=== PATIENT | female | born 1995 | race Caucasian/White ===

== ENCOUNTER 2016-08-04 06:35 | Emergency (ER) | payer SELFPAY ==
[2016-08-04 07:51] VITALS: BP 121/81
== END 2016-08-04 07:51 | disposition home or self-care (01) ==
LOC: ED 06:35
DX: L02.411 Cutaneous abscess of right axilla (principal)
CPT/HCPCS: J2001; J7040

== ENCOUNTER 2016-08-06 08:57 | Emergency (ER) | payer SELFPAY ==
[2016-08-06 10:19] VITALS: BP 117/88
== END 2016-08-06 10:19 | disposition home or self-care (01) ==
LOC: ED 08:57
DX: Z48.00 Encounter for change or removal of nonsurgical wound dressing (principal)

== ENCOUNTER 2017-05-23 08:12 | Emergency (ER) | payer OTHER ==
[~2017-05-23] VITALS: Ht 170.2 cm; Wt 100.7 kg
[2017-05-23 08:22] VITALS: Ht 170.2 cm; Wt 100.7 kg
[2017-05-23 10:01] LABS: CALCIUM 9.2 mg/dL (8.5-10.1); CARBON DIOXIDE 26.6 mmol/L (21-32); CHLORIDE SERUM 105 mmol/L (98-107); CREATININE SERUM 0.6 mg/dL (0.6-1.0); GFR1 > 60 mL/min; GLUCOSE SERUM 95 mg/dL (74-106); POTASSIUM SERUM 3.8 mmol/L (3.5-5.1); SODIUM SERUM 140 mmol/L (136-145)
[2017-05-23 10:07] LABS: ALBUMIN 3.5 g/dL (3.4-5.0); ALKALINE PHOSPHATASE 84 U/L (46-116); ALT/SGPT 13 U/L (14-59); AST/SGOT 12 U/L (15-37)
[2017-05-23 11:26] LABS: PLATELET COUNT 273 x10^3mcL (130-400)
[2017-05-23 11:27] LABS: BASOPHIL % 0.4 % (0-2)
[2017-05-23 11:55] VITALS: BP 128/77
== END 2017-05-23 11:55 | disposition home or self-care (01) ==
LOC: ED 08:12
PROVIDERS: Emergency Medicine
DX: R20.2 Paresthesia of skin (principal); R51 Headache
CPT/HCPCS: 36415

== ENCOUNTER 2019-05-13 10:36 | Emergency (ER) | payer MEDICAID, OTHER ==
[~2019-05-13] VITALS: Ht 165.1 cm; Wt 116.6 kg
[2019-05-13 10:44] VITALS: Ht 165.1 cm; Wt 116.6 kg
[2019-05-13 13:41] VITALS: BP 138/76
== END 2019-05-13 13:41 | disposition home or self-care (01) ==
LOC: ED 10:36
DX: J06.9 Acute upper respiratory infection, unspecified (principal)
CPT/HCPCS: 87804

== ENCOUNTER 2020-03-26 06:13 | Emergency (ER) | payer MEDICAID ==
[~2020-03-26] VITALS: Ht 167.6 cm; Wt 117.7 kg
[2020-03-26 06:15] VITALS: Ht 167.6 cm; Wt 117.7 kg
[2020-03-26 06:56] VITALS: BP 127/74
== END 2020-03-26 06:56 | disposition home or self-care (01) ==
LOC: ED 06:13
DX: B34.9 Viral infection, unspecified (principal); Z20.828 Contact with and (suspected) exposure to other viral communicable diseases
CPT/HCPCS: U0003